=== PATIENT | female | born 1940 | race Caucasian/White ===

== ENCOUNTER 2018-09-30 16:28 | Observation (INO) ==
--- NOTE | 2018-09-30 17:14 | Emergency Department Note ---
Disposition Clinical Impression: Neck pain, COPD exacerbation, MARCELA (acute kidney injury) Dyspnea Qualifiers: Dyspnea type: unspecified Qualified Code(s): R06.00 - Dyspnea, unspecified Disposition: Admitted As Inpatient Condition: Undetermined Time of Disposition: 07:27 General Adult HPI - General Chief complaint: ED Shortness of Breath/Dyspnea Stated complaint: ANABEL, Heart cath 07/30 Time Seen by Provider: 09/30/18 17:01 Source: patient Limitations: no limitations - History of Present Illness Pain Scale: 5 - Related Data Home Medications Medication Instructions Recorded Confirmed Albuterol Sulfate [Proventil 1 puff IH PRN PRN 07/30/18 09/30/18 Inhaler] Aspirin [Lo-Dose Aspirin EC] 81 mg PO DAILY 07/30/18 09/30/18 Glimepiride [Amaryl] 8 mg PO BID 07/30/18 09/30/18 HYDROcodone/Acet 5/325 mg [[place] 1 tab PO Q6H PRN 07/30/18 09/30/18 5-325 mg] Latanoprost/Pf [Latanoprost 0.005% 7.5 ml OP HS 07/30/18 09/30/18 Eye Drop] Losartan Potassium [Cozaar] 100 mg PO DAILY 07/30/18 09/30/18 Metoprolol [Lopressor] 100 mg PO BID 07/30/18 09/30/18 Multivit-Min/Iron Fum/Folic AC 1 each PO DAILY 07/30/18 09/30/18 [Hjqcl-[id number]-Gwpfcgtq Tablet] Nitroglycerin [Nitrostat] 0.4 mg SL PRN PRN 07/30/18 09/30/18 Omeprazole [PriLOSEC] 40 mg PO DAILY 07/30/18 09/30/18 Tiotropium [Spiriva] 18 mcg IH PRN PRN 07/30/18 09/30/18 amLODIPine [Norvasc] 5 mg PO DAILY 07/30/18 09/30/18 clonazePAM [Clonazepam] 1 mg PO HS 07/30/18 09/30/18 hydroCHLOROthiazide 25 mg PO DAILY 07/30/18 09/30/18 [Hydrochlorothiazide] metFORMIN [Glucophage] 500 mg PO HS 07/30/18 09/30/18 metFORMIN [Glucophage] 1,000 mg PO 0800 09/30/18 09/30/18 Previous Rx's Medication Instructions Recorded Atorvastatin [Lipitor] 40 mg PO HS #30 tablet 07/30/18 Clopidogrel Bisulfate [Plavix] 75 mg PO DAILY #30 tablet 07/30/18 Allergies Allergy/AdvReac Type Severity Reaction Status Date / Time No Known Allergies Allergy Verified 09/05/17 13:16 Past Medical History - Past Medical History Medical history: Reports: COPD, diabetes, hyperlipidemia, hypertension, myocardial infarction Surgical history: Reports: angioplasty/stent Psychiatric history: Reports: no psych history - Social History Smoking Status: Former smoker Smokeless Tobacco Status: No Alcohol use: Reports: none Drug use: Reports: none Physical Exam - General Limitations: no limitations General appearance: alert, in no apparent distress Course Vital Signs Temperature 98.6 F 09/30/18 16:31 Pulse Rate 75 09/30/18 16:31 Respiratory Rate 18 09/30/18 16:31 Blood Pressure 153/92 09/30/18 16:31 O2 Sat by Pulse Oximetry 97 09/30/18 16:31 Temperature 98.2 F 10/01/18 04:43 Pulse Rate 86 10/01/18 04:43 Respiratory Rate 18 10/01/18 04:43 Blood Pressure 103/61 10/01/18 04:43 O2 Sat by Pulse Oximetry 94 10/01/18 04:43 Oxygen Delivery Oxygen Delivery Room Air Medical Decision Making - Lab Data Result diagrams: 10/01/18 05:25 09/30/18 17:11 Lab Results 09/30/18 09/30/18 09/30/18 Range/Units 17:04 17:11 17:11 WBC 14.2 H (4.3-11.1) K/mcL RBC 4.87 (3.82-4.97) M/mcL Hgb 12.6 (11.5-15.4) g/dL Hct 39.2 (35.3-44.9) % MCV 80.5 L (83.0-100.0) fL MCH 25.9 L (28.0-33.3) pg MCHC 32.1 (31.6-35.5) g/dL RDW 14.2 (11.5-14.5) % Plt Count 345 (140-400) K/mcL MPV 10.4 (9.4-12.4) fL Immature Gran % 0.6 (0-4) % Seg Neutrophils % 63.2 % Lymphocytes % 24.7 % Monocytes % 9.7 % Eosinophils % 1.3 % Basophils % 0.5 % Neutrophils # 9.0 H (1.6-8.9) K/mcL Lymphocytes # 3.5 (0.6-4.6) K/mcL Monocytes # 1.4 H (0.0-1.3) K/mcL Eosinophils # 0.2 (0.0-0.6) K/mcL Basophils # 0.1 (0.0-0.2) K/mcL Sodium 132 L (136-145) mEq/L Potassium 4.5 (3.5-5.1) mEq/L Chloride 94 L (98-107) mEq/L Carbon Dioxide 25 (23-29) mEq/L BUN 41 H (8-23) mg/dL Creatinine 1.31 H (0.60-1.20) mg/dL Est GFR ( Amer) 47 L (> 60) Est GFR (Non-Af Amer) 39 L (> 60) BUN/Creatinine Ratio 31 H (6-26) Glucose 147 H (70-105) mg/dL Calculated Osmolality 287 (280-300) Calcium 9.2 (8.6-10.3) mg/dL Troponin I < 0.03 (< 0.04) ng/mL B-Natriuretic Peptide 58 (Less than 100) pg/mL Attestation Statement - Attestation Attestation: I reviewed the residents documentation and agree with the residents assessment and plan of care. I have personally had face to face time with the patient. (Brief History, Brief Exam, and MDM) I personally supervised and was present for the dhaliwal/critical portions of the following procedures completed by the resident: (add procedures performed here). [id number] time provided I attest to supervising the resident physician's interpretation of ECG. Patient presents with dyspnea and pain between her shoulder blades. She states she had similar symptoms prior to cardiac catheterization with angioplasty. No stents were deployed. This intervention was performed 2 months ago. Patient appears mildly anxious on exam but otherwise no acute distress
--- NOTE | 2018-09-30 17:39 | Emergency Department Note ---
Disposition Clinical Impression: Neck pain, COPD exacerbation, MARCELA (acute kidney injury) Dyspnea Qualifiers: Dyspnea type: unspecified Qualified Code(s): R06.00 - Dyspnea, unspecified Disposition: Admitted As Inpatient Condition: Undetermined Referrals: Agustina Lai MD [Primary Care Provider] - Forms: ED Satisfaction Letter Time of Disposition: 19:52 General Adult HPI - General Chief complaint: ED Shortness of Breath/Dyspnea Stated complaint: ANABEL, Heart cath 07/30 Time Seen by Provider: 09/30/18 17:01 Source: patient Mode of arrival: private vehicle Limitations: no limitations Nursing Notes Reviewed: Yes Vital Signs Reviewed: Yes - History of Present Illness HPI Narrative: Patient is an 78-year-old female with a past medical history including hypertension, hyperlipidemia, COPD, coronary artery disease status post NM with multiple stent placements, presenting with chief complaint of shortness of breath. The patient was recently admitted and had a coronary catheterization with balloon angioplasty in July. During that time, she had shortness of breath and neck pain and back pain in between her shoulder blades. Patient states for the past 2-3 days, she complains of worsening shortness of breath. She complains of a new cough today. She has been increasing the use of her inhalers and nebulizer treatments without much improvement. She states today, she developed the neck pain and pain in her shoulder blades. She denies any actual chest pain. She states when this occurred, she became concerned this was her heart again. She denies any nausea or vomiting, diaphoresis, lightheadedness, abdominal pain, fevers or chills. Pain Scale: 5 - Related Data Home Medications Medication Instructions Recorded Confirmed Albuterol Sulfate [Proventil 1 puff IH PRN PRN 07/30/18 07/30/18 Inhaler] Aspirin [Lo-Dose Aspirin EC] 81 mg PO DAILY 07/30/18 07/30/18 Glimepiride [Amaryl] 8 mg PO BID 07/30/18 07/30/18 HYDROcodone/Acet 5/325 mg [[place] 1 tab PO Q6H PRN 07/30/18 07/30/18 5-325 mg] Latanoprost/Pf [Latanoprost 0.005% 7.5 ml OP HS 07/30/18 07/30/18 Eye Drop] Losartan Potassium [Cozaar] 100 mg PO DAILY 07/30/18 07/30/18 Metoprolol [Lopressor] 100 mg PO BID 07/30/18 07/30/18 Multivit-Min/Iron Fum/Folic AC 1 each PO DAILY 07/30/18 07/30/18 [Pbszt-Qlmcozp-Qpxtwkss Tablet] Nitroglycerin [Nitrostat] 0.4 mg SL PRN PRN 07/30/18 07/30/18 Omeprazole [PriLOSEC] 40 mg PO DAILY 07/30/18 07/30/18 Tiotropium [Spiriva] 18 mcg IH PRN PRN 07/30/18 07/30/18 amLODIPine [Norvasc] 5 mg PO DAILY 07/30/18 07/30/18 clonazePAM [Clonazepam] 1 mg PO HS 07/30/18 07/30/18 hydroCHLOROthiazide 25 mg PO DAILY 07/30/18 07/30/18 [Hydrochlorothiazide] metFORMIN [Glucophage] 500 mg PO HS 07/30/18 07/30/18 Previous Rx's Medication Instructions Recorded Atorvastatin [Lipitor] 40 mg PO HS #30 tablet 07/30/18 Clopidogrel Bisulfate [Plavix] 75 mg PO DAILY #30 tablet 07/30/18 Allergies Allergy/AdvReac Type Severity Reaction Status Date / Time No Known Allergies Allergy Verified 09/05/17 13:16 All systems ED: reviewed and negative except as stated. Review of Systems: As Per HPI Constitutional: Denies: fever, chills Past Medical History - Past Medical History Attestation: Yes The following information was validated with the patient. Source: patient Medical history: Reports: COPD, diabetes, hyperlipidemia, hypertension, myocardial infarction Surgical history: Reports: angioplasty/stent Psychiatric history: Reports: no psych history - Social History Smoking Status: Former smoker Smokeless Tobacco Status: No Alcohol use: Reports: none Drug use: Reports: none Physical Exam - General Limitations: no limitations General appearance: alert, in no apparent distress - Head Head exam: atraumatic, normocephalic - Eye Eye exam: Present: normal appearance, EOMI - ENT ENT exam: normal exam, mucous membranes moist - Neck Neck exam: Present: normal inspection, trachea midline - Chest Chest inspection: Present: normal inspection, symmetric chest wall rise - Respiratory Respiratory exam: Present: other (Diminished breath sounds bilaterally with scant expiratory wheezing, no rales or rhonchi, no accessory muscle use) - Cardiovascular Cardiovascular exam: Present: regular rate, normal rhythm - Abdominal Exam Abdominal exam: Present: soft, Non-Tender. Absent: distention - Extremities Exam Extremities exam: Present: normal capillary refill. Absent: pedal edema, calf tenderness - Neurological Exam Neurological exam: Present: alert, oriented X3 - Psychiatric Psychiatric exam: Present: normal affect, normal mood - Skin Skin exam: Present: warm, dry. Absent: diaphoresis, pallor Course Vital Signs Temperature 98.6 F 09/30/18 16:31 Pulse Rate 75 09/30/18 16:31 Respiratory Rate 18 09/30/18 16:31 Blood Pressure 153/92 09/30/18 16:31 O2 Sat by Pulse Oximetry 97 09/30/18 16:31 Temperature 98.6 F 09/30/18 16:31 Pulse Rate 80 09/30/18 19:46 Respiratory Rate 19 09/30/18 19:46 Blood Pressure 165/72 09/30/18 19:46 O2 Sat by Pulse Oximetry 96 09/30/18 19:46 Oxygen Delivery Oxygen Delivery Room Air Medical Decision Making - [facility] Narrative Medical decision making narrative: EKG was obtained that was unchanged from prior. We will obtain cardiac workup as these are similar symptoms that she presented with in July. She also has significantly decreased breath sounds bilaterally with scant expiratory wheezing. We will give her triple DuoNeb treatment and Solu-Medrol, azithromycin, for COPD exacerbation as well. 19:20 Patient was reevaluated. Lungs sound improved however the patient does not feel improved. She states she still has the pain in her neck and back as well as feeling short of breath. Chest x-ray shows no acute cardiopulmonary abnormality troponin less than 0.03. When the patient for cardiac workup as these are similar symptoms. Hospitalist has been paged. 19:[address] Pedraza, hospitalist, who accepts admission. Recommends trying nitroglycerin for her symptoms. Also aspirin given. - Medical Records Medical records reviewed: Yes I reviewed the patient's medical records. - Lab Data Lab results reviewed: Yes I reviewed the patient's lab results. Result diagrams: 09/30/18 17:11 09/30/18 17:11 Lab Results 09/30/18 09/30/18 09/30/18 Range/Units 17:04 17:11 17:11 WBC 14.2 H (4.3-11.1) K/mcL RBC 4.87 (3.82-4.97) M/mcL Hgb 12.6 (11.5-15.4) g/dL Hct 39.2 (35.3-44.9) % MCV 80.5 L (83.0-100.0) fL MCH 25.9 L (28.0-33.3) pg MCHC 32.1 (31.6-35.5) g/dL RDW 14.2 (11.5-14.5) % Plt Count 345 (140-400) K/mcL MPV 10.4 (9.4-12.4) fL Immature Gran % 0.6 (0-4) % Seg Neutrophils % 63.2 % Lymphocytes % 24.7 % Monocytes % 9.7 % Eosinophils % 1.3 % Basophils % 0.5 % Neutrophils # 9.0 H (1.6-8.9) K/mcL Lymphocytes # 3.5 (0.6-4.6) K/mcL Monocytes # 1.4 H (0.0-1.3) K/mcL Eosinophils # 0.2 (0.0-0.6) K/mcL Basophils # 0.1 (0.0-0.2) K/mcL Sodium 132 L (136-145) mEq/L Potassium 4.5 (3.5-5.1) mEq/L Chloride 94 L (98-107) mEq/L Carbon Dioxide 25 (23-29) mEq/L BUN 41 H (8-23) mg/dL Creatinine 1.31 H (0.60-1.20) mg/dL Est GFR ( Amer) 47 L (> 60) Est GFR (Non-Af Amer) 39 L (> 60) BUN/Creatinine Ratio 31 H (6-26) Glucose 147 H (70-105) mg/dL Calculated Osmolality 287 (280-300) Calcium 9.2 (8.6-10.3) mg/dL Troponin I < 0.03 (< 0.04) ng/mL B-Natriuretic Peptide 58 (Less than 100) pg/mL - Radiology Data Radiology results reviewed: Yes I reviewed the patient's radiology results. Chest X-Ray 09/30/18 17:04 IMPRESSION: 1. No radiographic finding to account for patient's shortness of breath. D/ / Mark Redman MD / Mark Redman MD Interpreting Provider: Mark Redman MD - EKG Data EKG #1 EKG attestation: Yes I reviewed and interpreted this EKG. EKG results narrative: EKG obtained at 1707 shows sinus rhythm with heart rate 72, ME interval 181, QRS duration 98, QTC 4:15, no ST elevation, no ST depression, T wave inversion in lead 3, compared to old EKG on 07/30/2018 which shows no new changes.
[2018-09-30 17:42] LABS: Basophils # 0.1 K/mcL (0.0-0.2); Basophils % 0.5 %; Eosinophils # 0.2 K/mcL (0.0-0.6); Eosinophils % 1.3 %; Hematocrit 39.2 % (35.3-44.9); Hemoglobin 12.6 g/dL (11.5-15.4); Immature Granulocytes % 0.6 % (0-4); Lymphocytes # 3.5 K/mcL (0.6-4.6); Lymphocytes % 24.7 %; Mean Corpuscular HGB Conc 32.1 g/dL (31.6-35.5); Mean Corpuscular Hemoglobin 25.9 pg (28.0-33.3); Mean Corpuscular Volume 80.5 fL (83.0-100.0); Mean Platelet Volume 10.4 fL (9.4-12.4); Monocytes # 1.4 K/mcL (0.0-1.3); Monocytes % 9.7 %; Platelet Count 345 K/mcL (140-400); Red Blood Count 4.87 M/mcL (3.82-4.97); Red Cell Distribution Width 14.2 % (11.5-14.5); Segmented Neutrophils % 63.2 %; White Blood Count 14.2 K/mcL (4.3-11.1)
[2018-09-30] MEDS ORDERED: Ipratropium/Albuterol Neb 3 ML IH ONE (18:00)
[2018-09-30] MEDS ORDERED: methylPREDNISolone 125 MG/2 ML VIAL IVP ONE (18:00)
[2018-09-30 18:01] LABS: BUN/Creatinine Ratio 31 (6-26); Blood Urea Nitrogen 41 mg/dL (8-23); Calcium 9.2 mg/dL (8.6-10.3); Carbon Dioxide 25 mEq/L (23-29); Chloride 94 mEq/L (98-107); Glucose 147 mg/dL (70-105); Osmolality,Calculated 287 (280-300); Potassium 4.5 mEq/L (3.5-5.1); Sodium 132 mEq/L (136-145); Troponin I < 0.03 ng/mL (< 0.04); eGFR For African Americans 47 (> 60); eGFR For Non-African Americans 39 (> 60)
[2018-09-30] MEDS ORDERED: Azithromycin 250 MG TABLET PO ONE (19:32)
[2018-09-30] MEDS ORDERED: Aspirin 81 MG TAB.CHEW PO STA (19:51)
[2018-09-30] MEDS ORDERED: Naloxone 0.4 MG/ML INJ IVP PRN (20:44)
[2018-09-30] MEDS ORDERED: Albuterol 2.5 MG/3 ML NEBULIZER IH PRN (20:48)
[2018-09-30] MEDS ORDERED: Dextrose Gel 15 GM/37.5 ML TUBE PO PRN ×2 (20:49)
[2018-09-30] MEDS ORDERED: *HR* Dextrose 50 % in Water (Syg) 50 ML SYRINGE IVP PRN (20:49)
[2018-09-30] MEDS ORDERED: D5% in Water 1,000 ML IVC PRN (20:49)
[2018-09-30] MEDS ORDERED: Nitroglycerin 0.4 MG TAB.SUBL SL PRN (20:50)
--- NOTE | 2018-09-30 21:03 | Internal Med History&Physical ---
Date of Encounter: 09/30/18 Time of Encounter: 20:02 Internal Medicine - H&P: HPI Chief complaint: Shortness of breath Admitted From: Emergency Dept Plans for Post Hospital Care: Home History of present illness: Ms. Campbell is a 78 year old female Patient presented to the emergency department with shortness of breath as well as interscapular back pain. Her symptoms are worse with exertion particularly when she is doing chores such as vacuuming at home. Her symptoms improve with rest. Her shortness of breath has been worse over the last few days, but the interscapular shoulder pain has been worsening as of today. She occasionally gets central chest pain as well with these episodes. She has had similar prese ntation like this 2 months ago. At that time she underwent a coronary catheterization which showed severe one-vessel coronary artery disease. A transradial PTCA was performed in the 1st obtuse marginal branch. She has since then continued to follow with cardiology and has also met with vascular surgery regarding carotid artery stenosis. She he smokes only a few cigarettes a day but has smoked for many years. She has a history of diabetes as well. Emergency department patient's initial vital signs within normal limits CBC notable for white count of 14.2. BMP notable for a sodium of 132, creatinine of 1.31 and a glucose of 147. Initial troponin undetectable BNP 58 Chest x-ray showed no radiographic findings to account for patient's shortness of breath. EKG: Heart rate 72, normal sinus rhythm, QTC 4:15. No ischemic changes, similar to previous. She does have an electronic atrial pacemaker. In the emergency department patient received breathing treatments, IV steroids and azithromycin. She is also given a dose of aspirin. Her chest pain had resolved and her shortness of breath is also improved. She initially declined admission, but eventually felt that it would be best for her to be admitted to the hospital. Upon my evaluation, patient is resting comfortably in the ER bed in no acute distress. She denies chest pain, abdominal pain, nausea, vomiting, diarrhea and constipation. Her shortness of breath is also resolved. She has significant family medical history of heart disease in her father, mother as well as her brother. She is a full code. Past Med Surg Social Fam HX - Past Medical History Medical history: COPD, diabetes, hyperlipidemia, hypertension, myocardial infarction Additional medical history: diverticulois, Psychiatric history: no psych history - Past Surgical History Surgical History: angioplasty/stent Additional surgical history: 6 cardiac stents. - Social History Smoking Status: Former smoker Smokeless Tobacco Status: No Alcohol use: none Drug use: none - Family History Mother Hx Family Cardiac Disorders: Yes (Heart disease) Father Hx Family Cardiac Disorders: Yes (Heart disease) Brother Hx Family Cardiac Disorders: Yes (Has pacemaker) Internal Medicine - H&P: Meds Albuterol Sulfate [Proventil Inhaler] 1 puff IH PRN PRN 07/30/18 [History] Aspirin [Lo-Dose Aspirin EC] 81 mg PO DAILY 07/30/18 [History] Atorvastatin [Lipitor] 40 mg PO HS #30 tablet 07/30/18 [Rx] Clopidogrel Bisulfate [Plavix] 75 mg PO DAILY #30 tablet 07/30/18 [Rx] Glimepiride [Amaryl] 8 mg PO BID 07/30/18 [History] HYDROcodone/Acet 5/325 mg [[place] 5-325 mg] 1 tab PO Q6H PRN 07/30/18 [History] Latanoprost/Pf [Latanoprost 0.005% Eye Drop] 7.5 ml OP HS 07/30/18 [History] Losartan Potassium [Cozaar] 100 mg PO DAILY 07/30/18 [History] Metoprolol [Lopressor] 100 mg PO BID 07/30/18 [History] Multivit-Min/Iron Fum/Folic AC [Hotqe-Rvbmwit-Bacesajo Tablet] 1 each PO DAILY 07/30/18 [History] Nitroglycerin [Nitrostat] 0.4 mg SL PRN PRN 07/30/18 [History] Omeprazole [PriLOSEC] 40 mg PO DAILY 07/30/18 [History] Tiotropium [Spiriva] 18 mcg IH PRN PRN 07/30/18 [History] amLODIPine [Norvasc] 5 mg PO DAILY 07/30/18 [History] clonazePAM [Clonazepam] 1 mg PO HS 07/30/18 [History] hydroCHLOROthiazide [Hydrochlorothiazide] 25 mg PO DAILY 07/30/18 [History] metFORMIN [Glucophage] 500 mg PO HS 07/30/18 [History] metFORMIN [Glucophage] 1,000 mg PO 0800 09/30/18 [History] Allergy/AdvReac Type Severity Reaction Status Date / Time No Known Allergies Allergy Verified 09/05/17 13:16 All Systems PM: A 10-system review of systems was performed and is negative for pertinent findings except as documented above in the HPI. - Constitutional Vitals: Temp Pulse Resp BP Pulse Ox 98.6 F 77 17 171/71 98 09/30/18 16:31 09/30/18 20:24 09/30/18 20:24 09/30/18 20:24 09/30/18 20:24 General appearance: Present: cooperative, A&O X 3, pleasant, no acute distress, answers questions appropriately Exam: - - Head Head exam: Present: normal inspection - Eye Eye exam: Present: EOMI, normal appearance - Neck Neck exam general surgery: Present: full ROM, supple. Absent: tenderness - Respiratory Respiratory exam: Present: CTAB. Absent: chest wall tenderness, decreased breath sounds, rales, respiratory distress, rhonchi, wheezes - Cardiovascular Cardiovascular exam: Present: RRR. Absent: diastolic murmur, systolic murmur - GI/Abdominal GI/Abdominal exam: Present: normal bowel sounds, soft. Absent: tenderness - Extremities Exam Extremities exam: Present: warm, radial pulses palpable and symmetrical. Absent: calf tenderness, pedal edema, tenderness - Back Exam Back exam: Absent: CVA tenderness (L), CVA tenderness (R), tenderness, vertebral tenderness - Neurological Exam Neurological exam: Present: no focal deficits, strengths equal and symetr throughout. Absent: motor sensory deficit, facial droop, speech deficit - Skin Skin exam: Present: dry, normal color, warm Internal Med - H&P Results - Labs CBC & Chem 7: 09/30/18 17:11 09/30/18 17:11 Labs: Short CBC 09/30/18 Range/Units 17:11 WBC 14.2 H (4.3-11.1) K/mcL Hgb 12.6 (11.5-15.4) g/dL Hct 39.2 (35.3-44.9) % Plt Count 345 (140-400) K/mcL Neutrophils # 9.0 H (1.6-8.9) K/mcL BMP 09/30/18 17:11 Sodium 132 L Potassium 4.5 Chloride 94 L Carbon Dioxide 25 BUN 41 H Creatinine 1.31 H Glucose 147 H Calcium 9.2 Cardiac Enzymes 09/30/18 Range/Units 17:11 Troponin I < 0.03 (< 0.04) ng/mL - Impressions ITS Impressions Chest X-Ray 09/30/18 17:04 IMPRESSION: 1. No radiographic finding to account for patient's shortness of breath. D/ / Mark Redman MD / Mark Redman MD Interpreting Provider: Mark Redman MD - Assessment and Plan (1) Shortness of breath Current Visit: Yes Status: Acute Assessment and plan: Secondary to possible COPD exacerbation. She has a history of smoking. Symptoms improved after breathing treatments and IV steroids. Continue oxygen supplementation as needed Continue DuoNeb nebs and albuterol Prednisone 40 mg daily Azithromycin 500 mg IV daily Continuous pulse oximeter (2) COPD exacerbation Current Visit: Yes Status: Acute Assessment and plan: As above, patient has history of COPD and nicotine use. Continue oxygen supplementation Continue DuoNeb nebs and albuterol Prednisone 40 mg daily Azithromycin 500 mg IV daily (3) Chest pain Current Visit: Yes Status: Acute Assessment and plan: Patient did have recent cardiac catheterization 2 months ago. Has chest pain with exertion, relieved at rest. Currently chest pain resolved. Aspirin given in the emergency department. EKG negative for ischemic changes, initial troponin undetectable. Cardiac telemetry Continue to trend troponin Sublingual nitroglycerin as needed Cardiology consult in the morning Qualifiers: Chest pain type: unspecified Qualified Code(s): R07.9 - Chest pain, unspecified (4) MARCELA (acute kidney injury) Current Visit: Yes Status: Acute Assessment and plan: Patient has baseline chronic kidney disease stage III. Elevated creatinine from baseline. Give IV fluids 1 L bolus now Repeat labs in the morning (5) Diabetes Current Visit: Yes Status: Acute Assessment and plan: Patient is not an insulin dependent diabetic Monitor sugars every 6 hours Diabetic diet, nothing by mouth after midnight Low dose insulin sliding scale as needed Hold home meds. Qualifiers: Diabetes mellitus type: type 2 Diabetes mellitus mcc insulin use: without termination clerk use Diabetes mellitus complication status: with hyperglycemia Qualified Code(s): E11.65 - Type 2 diabetes mellitus with hyperglycemia (6) DVT prophylaxis Current Visit: Yes Status: Acute Assessment and plan: Subcutaneous heparin - Time Spent With Patient Total time spent is greater than 50% in coordination of care (as documented) at patient's floor/unit and/or counseling patient: Greater than 35 minutes
[2018-09-30] MEDS ORDERED: 0.9 % Sodium Chloride 1,000 ML IVC ONE (21:11)
[2018-09-30] MEDS: Ipratropium/Albuterol Neb 3 ML IH SCH (21:50)
[2018-09-30] MEDS: Nitroglycerin 0.4 MG TAB.SUBL SL SCH (23:42)
[2018-10-01] MEDS: clonazePAM 1 MG TABLET PO SCH ×2 (02:42→21:26)
[2018-10-01] MEDS: Insulin LISPRO 300 UNITS/3 ML VIAL SQ SCH ×4 (02:48→18:52)
[2018-10-01] MEDS: Ipratropium/Albuterol Neb 3 ML IH SCH ×5 (04:19→22:31)
[2018-10-01] MEDS: *HR* Heparin 5,000 UNIT/ML VIAL SQ SCH ×2 (05:37→18:52)
[2018-10-01 06:27] LABS: Hematocrit 36.1 % (35.3-44.9); Hemoglobin 12.1 g/dL (11.5-15.4); Mean Corpuscular HGB Conc 33.5 g/dL (31.6-35.5); Mean Corpuscular Hemoglobin 26.9 pg (28.0-33.3); Mean Corpuscular Volume 80.4 fL (83.0-100.0); Mean Platelet Volume 10.6 fL (9.4-12.4); Platelet Count 284 K/mcL (140-400); Red Blood Count 4.49 M/mcL (3.82-4.97); Red Cell Distribution Width 14.1 % (11.5-14.5); White Blood Count 9.7 K/mcL (4.3-11.1)
[2018-10-01] MEDS: Nitroglycerin 0.4 MG TAB.SUBL SL SCH (06:43)
[2018-10-01 07:07] LABS: Troponin I < 0.03 ng/mL (< 0.04)
[2018-10-01 07:32] LABS: BUN/Creatinine Ratio 33 (6-26); Blood Urea Nitrogen 38 mg/dL (8-23); Calcium 8.8 mg/dL (8.6-10.3); Carbon Dioxide 23 mEq/L (23-29); Chloride 98 mEq/L (98-107); Glucose 333 mg/dL (70-105); Osmolality,Calculated 290 (280-300); Potassium 4.2 mEq/L (3.5-5.1); Sodium 129 mEq/L (136-145); eGFR For African Americans 56 (> 60); eGFR For Non-African Americans 46 (> 60)
[2018-10-01] MEDS: predniSONE 20 MG TABLET PO SCH (10:14)
[2018-10-01] MEDS: Metoprolol 100 MG TABLET PO SCH ×2 (10:14→21:26)
[2018-10-01] MEDS: Aspirin Enteric Coated 81 MG Tablet PO SCH (10:14)
[2018-10-01] MEDS: Azithromycin 500 MG in D5% in Water 250 ML IVPB SCH (10:15)
--- NOTE | 2018-10-01 11:33 | Cardiology Consult Note ---
<Wolfgang Sifuentes R - Last Filed: 10/01/18 11:29> Date of Encounter: 10/01/18 Time of Encounter: 11:29 Assessment and Plan (1) Anginal equivalent Current Visit: Yes Status: Acute Presented to the ED with shortness of breath as well as interscapular back pain radiating to her neck, similar to prior anginal equivalent. Recent PTCA to 1st OM on 07/30/18. Per pt, symptoms never resolved s/p PTCA. Her symptoms are worse with exertion particularly when she is doing chores such as vacuuming at home. Symptoms improve with rest and nitro. Troponin negative x 3. C 07/30/18: Severe one vessel CAD. EF 65%. Patient had successful PTCA placement in the 1st OM. 30% stenosis in the Mid LAD. 65% stenosis in the Mid Circumflex. 60% stenosis in the Mid RCA. TTE 06/12/18: LVEF 65%. Mild to moderate LV hypertrophy most prominently focused in the LV apex. Mild LVDD. Normal RV structure and function. Mild-moderate MR. Mild TR. No phtn. Continue ASA, Statin, Plavix, BB. Will increase Imdur to 60mg daily. Recommend medical management. Will re-evaluate on increased Imdur dose. (2) CAD (coronary artery disease) Current Visit: Yes Status: Acute As above. ASA, Statin, Plavix, BB, nitrates. Qualifiers: Coronary Disease-Associated Artery/Lesion type: [place] artery [place] vs. transplanted heart: [place] heart Associated angina: angina presence unspecified Qualified Code(s): I25.10 - Atherosclerotic heart disease of [place] coronary artery without angina pectoris Discussion w patient/family: The assessment and plan as outlined above was discussed with the patient and/or family members who expressed understanding and agreement. All questions were answered. Thank you for involving us in the care of your patient. Please call with any questions. I will discuss all the above with Dr. Johnson and make changes as necessary. History of Present Illness Consult date: 10/01/18 Consult reason: chest pain History of present illness: Ms. Campbell is a 78 year old female with PMH DM, tobacco abuse, CAD s/p PCI and recent PTCA to 1st OM on 07/30/18 that presented to the ED with shortness of breath as well as interscapular back pain radiating to her neck, similar to prior anginal equivalent. Per pt, symptoms never resolved s/p PTCA. Her symptoms are worse with exertion particularly when she is doing chores such as vacuuming at home. Symptoms improve with rest and nitro. Prior CV testing: [facility] 07/30/18: There is severe one vessel coronary artery disease. The left ventricle is normal and has normal contractility EF 65%. Patient had successful PTCA placement in the 1st OM. Right Radial spasm during catheter removal. 30% stenosis in the Mid LAD. 65% stenosis in the Mid Circumflex. 60% stenosis in the Mid RCA. TTE 06/12/18: LVEF 65%. Mild to moderate LV hypertrophy most prominently focused in the LV apex. Mild left ventricular diastolic dysfunction. Normal right ventricular structure and function. Mild-moderate mitral regurgitation. Mild tricuspid regurgitation. No pulmonary hypertension. A device lead was visualized in the right atrium and right ventricle. No evidence of PFO with agitated saline contrast. No prior echo for comparison. Past Med Surg Social Fam HX - Past Medical History Medical history: COPD, coronary artery disease, diabetes, hyperlipidemia, hypertension, myocardial infarction Additional medical history: diverticulois, Psychiatric history: no psych history - Past Surgical History Surgical History: angioplasty/stent Additional surgical history: 6 cardiac stents. - Social History Smoking Status: Former smoker Smokeless Tobacco Status: No Alcohol use: none Drug use: none - Family History Mother Hx Family Cardiac Disorders: Yes (Heart disease) Father Hx Family Cardiac Disorders: Yes (Heart disease) Brother Hx Family Cardiac Disorders: Yes (Has pacemaker) Medications and Allergies Albuterol Sulfate [Proventil Inhaler] 1 puff IH PRN PRN 07/30/18 [History] Aspirin [Lo-Dose Aspirin EC] 81 mg PO DAILY 07/30/18 [History] Atorvastatin [Lipitor] 40 mg PO HS #30 tablet 07/30/18 [Rx] Clopidogrel Bisulfate [Plavix] 75 mg PO DAILY #30 tablet 07/30/18 [Rx] Glimepiride [Amaryl] 4 mg PO BID 07/30/18 [History] Latanoprost/Pf [Latanoprost 0.005% Eye Drop] 1 drop BOTH EYES HS 07/30/18 [History] Losartan Potassium [Cozaar] 100 mg PO DAILY 07/30/18 [History] Multivit-Min/Iron Fum/Folic AC [Ddugz-Aulhldr-Fhlgeurg Tablet] 1 each PO DAILY 07/30/18 [History] Nitroglycerin [Nitrostat] 0.4 mg SL PRN PRN 07/30/18 [History] Omeprazole [PriLOSEC] 40 mg PO DAILY 07/30/18 [History] Tiotropium [Spiriva] 18 mcg IH DAILY PRN 07/30/18 [History] amLODIPine [Norvasc] 5 mg PO DAILY 07/30/18 [History] hydroCHLOROthiazide [Hydrochlorothiazide] 25 mg PO DAILY 07/30/18 [History] metFORMIN [Glucophage] 500 mg PO HS 07/30/18 [History] metFORMIN [Glucophage] 1,000 mg PO 0800 09/30/18 [History] Isosorbide MONOnitrate [Isosorbide Mononitrate ER] 30 mg PO DAILY 10/01/18 [History] Metoprolol Tartrate 50 mg PO BID 10/01/18 [History] Nicotine Patch [Nicoderm] 7 mg TD DAILY PRN 10/01/18 [History] clonazePAM [Clonazepam] 0.5 mg PO HS 10/01/18 [History] Allergy/AdvReac Type Severity Reaction Status Date / Time No Known Allergies Allergy Verified 10/01/18 08:57 All Systems Review: The remainder of the systems were reviewed and are negative - Cardiovascular Cardiovascular: as per HPI, chest pain at rest, chest pain with exertion, dyspnea on exertion, radiating jaw, neck or arm pain Physical Examination Vital Signs, Last 4 Hours Temp Pulse Resp BP Pulse Ox 10/01/18 08:23 98.1 F 79 15 140/75 96 Vital Signs Temp Pulse Resp BP Pulse Ox 10/01/18 08:23 98.1 F 79 15 140/75 96 10/01/18 04:43 98.2 F 86 18 103/61 94 10/01/18 04:20 18 96 09/30/18 23:42 97.8 F 88 16 179/93 96 09/30/18 21:50 18 96 09/30/18 20:49 98.1 F 77 16 165/76 96 09/30/18 20:24 77 17 171/71 98 09/30/18 19:46 80 19 165/72 96 09/30/18 18:55 70 18 142/82 99 09/30/18 18:45 24 98 09/30/18 16:31 98.6 F 75 18 153/92 97 Intake and Output 09/30/18 10/01/18 10/01/18 23:59 07:59 15:59 Output Total 500 / 500 500 / 1100 600 / 1100 Balance -500 / -500 -500 / -1100 -600 / -1100 Output: Urine 500 / 500 500 / 1100 600 / 1100 Other: Weight 78.018 kg Blood Glucose* 194 291 General: Conversant, No Apparent Distress HEENT: Atraumatic, Normocephaly, Mucus Membranes Moist Neck: No JVD, Normal carotid pulses Cardiac: Reg Rate and Rhythm, Normal S1 and S2, No Murmur Lungs: Normal Breath Sounds, No Wheeze, Rales, Rhonchi Neuro: Alert and responsive, No focal deficits noted Abdomen: Soft, Non-Tender Skin: No rashes noted on visualized skin Musculoskeletal: No Chest Wall Tenderness Extremities: No Clubbing, No Cyanosis, No Edema, Normal Pulses Results 10/01/18 05:25 10/01/18 05:25 Lab Results 09/30/18 09/30/18 09/30/18 17:04 17:11 17:11 WBC 14.2 H Hgb 12.6 Hct 39.2 Plt Count 345 Sodium 132 L Potassium 4.5 Chloride 94 L Carbon Dioxide 25 BUN 41 H Creatinine 1.31 H Glucose 147 H Calcium 9.2 Troponin I < 0.03 B-Natriuretic Peptide 58 09/30/18 10/01/18 10/01/18 22:52 05:25 05:25 WBC 9.7 Hgb 12.1 Hct 36.1 Plt Count 284 Sodium 129 L Potassium 4.2 Chloride 98 Carbon Dioxide 23 BUN 38 H Creatinine 1.14 Glucose 333 H Calcium 8.8 Troponin I < 0.03 < 0.03 B-Natriuretic Peptide Short CBC 10/01/18 09/30/18 Range/Units 05:25 17:11 WBC 9.7 14.2 H (4.3-11.1) K/mcL Hgb 12.1 12.6 (11.5-15.4) g/dL Hct 36.1 39.2 (35.3-44.9) % Plt Count 284 345 (140-400) K/mcL Neutrophils # 9.0 H (1.6-8.9) K/mcL BMP 10/01/18 09/30/18 Range/Units 05:25 17:11 Sodium 129 L 132 L (136-145) mEq/L Potassium 4.2 4.5 (3.5-5.1) mEq/L Chloride 98 94 L (98-107) mEq/L Carbon Dioxide 23 25 (23-29) mEq/L BUN 38 H 41 H (8-23) mg/dL Creatinine 1.14 1.31 H (0.60-1.20) mg/dL Glucose 333 H 147 H (70-105) mg/dL Calcium 8.8 9.2 (8.6-10.3) mg/dL Cardiac Enzymes 10/01/18 09/30/18 09/30/18 Range/Units 05:25 22:52 17:11 Troponin I < 0.03 < 0.03 < 0.03 (< 0.04) ng/mL Impressions Chest X-Ray 09/30/18 17:04 IMPRESSION: 1. No radiographic finding to account for patient's shortness of breath. D/ / Mark Redman MD / Mark Redman MD Interpreting Provider: Mark Redman MD Active Medications Albuterol Sulfate (Proventil Neb) 2.5 mg IH Q2H PRN PRN Reason: Shortness Of Breath/Wheezing Stop: 04/01/19 20:49 Albuterol/Ipratropium (Duoneb) 3 ml IH QIDR [facility] Stop: 04/01/19 23:01 Last Admin: 10/01/18 09:29 Dose: Not Given Documented by: Aspirin (Aspirin Ec) 81 mg PO DAILY [facility] Stop: 04/02/19 09:01 Last Admin: 10/01/18 10:14 Dose: 81 mg Documented by: Atorvastatin Calcium (Lipitor) 40 mg PO [facility] Stop: 04/02/19 21:01 Clonazepam (Klonopin) 1 mg PO HS [facility] Stop: 04/02/19 00:31 Last Admin: 10/01/18 02:42 Dose: 1 mg Documented by: Clopidogrel Bisulfate (Plavix) 75 mg PO DAILY [facility] Stop: 04/02/19 09:01 Last Admin: 10/01/18 10:14 Dose: 75 mg Documented by: Dextrose/Water (Dextrose 50% (Syg)) 25 ml IVP AD PRN PRN Reason: Hypoglycemia Stop: 04/01/19 20:50 Glucagon (Glucagen) 1 mg IM ONCE PRN PRN Reason: Hypoglycemia Stop: 04/01/19 20:50 Glucose (Gluctose) 15 gm PO ONCE PRN PRN Reason: Hypoglycemia Stop: 04/01/19 20:50 Glucose (Gluctose) 30 gm PO ONCE PRN PRN Reason: Hypoglycemia Stop: 04/01/19 20:50 Heparin Sodium (Porcine) (Heparin) 5,000 unit SQ Q12HCO [facility]; Protocol Stop: 04/02/19 06:01 Last Admin: 10/01/18 05:37 Dose: 5,000 unit Documented by: Azithromycin 500 mg/ Dextrose 250 mls @ 252 mls/hr IVPB Q24H [facility] Stop: 04/02/19 09:01 Last Admin: 10/01/18 10:15 Dose: 252 mls/hr Documented by: Dextrose (Dextrose 5%) 1,000 mls @ 100 mls/hr IVC .Q10H PRN PRN Reason: HYPOGLYCEMIA Stop: 04/01/19 20:50 Insulin Human Lispro (Humalog) 0 units SQ Q6HR [facility]; Protocol Stop: 04/02/19 00:01 Last Admin: 10/01/18 05:37 Dose: 8 units Documented by: Isosorbide Mononitrate (Imdur) 60 mg PO DAILY [facility] Stop: 04/02/19 11:31 Latanoprost (Xalatan) 1 drop BOTH EYES HS [facility] Stop: 04/02/19 21:01 Metoprolol Tartrate (Lopressor) 100 mg PO BID [facility] Stop: 04/02/19 09:01 Last Admin: 10/01/18 10:14 Dose: 100 mg Documented by: Naloxone HCl (Narcan) 0.4 mg IVP Q2MPRN PRN PRN Reason: SEE COMMENTS Stop: 04/01/19 20:45 Nitroglycerin (Nitroglycerin) 0.4 mg SL Q5MPRN PRN PRN Reason: Chest Pain Stop: 04/01/19 20:51 Omeprazole (Prilosec) 40 mg PO DAILY [facility] Stop: 04/02/19 09:01 Last Admin: 10/01/18 10:14 Dose: 40 mg Documented by: Prednisone (Prednisone) 40 mg PO DAILY [facility] Stop: 04/02/19 09:01 Last Admin: 10/01/18 10:14 Dose: 40 mg Documented by: - Imaging and Cardiology Echo: report reviewed Cardiac cath: report reviewed - EKG Interpretation EKG results cardiology: personally reviewed (SR), other (12 hr tele AVG HR 79, SR) Consult Discharge Plan - Plan Referrals: Agustina Lai MD [Primary Care Provider] - <Nelson Johnson - Last Filed: 10/01/18 19:56> Date of Encounter: 10/01/18 - Attending Attestation Patient was seen and evaluated independently by me. Findings, assessment and plan were discussed at length with patient, questions answered. Agree with nurse practitioner's/resident's documentation. Addition as follows, 78yoCF ho CAD PCI and recent PTCA-OM 20180809 (mLAD 30%, mLCx 65%, mRCA 60%), EF 60%, HTN, HLD, DM, COPD. P/w milder back/neck pain similar to angina equivalent prior to recent PCI. ECG non-ischemic. Trop neg. [id number] SPECT no ischemia. A: Atypical angina, stable, class III, vasospasm component? CAD, ho PCIs, recent PTCA-OM, mild-moderate 3-V disease P: up imdur and BB may trial of cardizem or ranexa if no improvement, [facility] Nelson Johnson MD, PhD Assessment and Plan Discussion w patient/family: The assessment and plan as outlined above was discussed with the patient and/or family members who expressed understanding and agreement. All questions were answered. Thank you for involving us in the care of your patient. Please call with any questions. History of Present Illness History of present illness: Ms. Campbell is a 78 year old female All Systems Review: The remainder of the systems were reviewed and are negative Physical Examination Vital Signs, Last 4 Hours Temp Pulse Resp BP Pulse Ox 10/01/18 17:14 97.7 F 65 16 110/70 97 10/01/18 15:48 16 97 Results 10/01/18 05:25 10/01/18 05:25 Lab Results 09/30/18 10/01/18 10/01/18 22:52 05:25 05:25 WBC 9.7 Hgb 12.1 Hct 36.1 Plt Count 284 Sodium 129 L Potassium 4.2 Chloride 98 Carbon Dioxide 23 BUN 38 H Creatinine 1.14 Glucose 333 H Calcium 8.8 Troponin I < 0.03 < 0.03
[2018-10-01] MEDS: Isosorbide MONOnitrate (24 HR) 60 MG TAB.ER.24H PO SCH (14:22)
--- NOTE | 2018-10-01 14:44 | Internal Med Progress Note ---
Hospitalist Progress Note - Encounter Date of Encounter: 10/01/18 Time of Encounter: 14:39 - Subjective Interval History: Ms. Campbell is a 78 year old female with known past medical history of hypertension, COPD, DM2, HTN, HLD, and CAD with recent PCI to 1st OM on 07/30/18, now she presented to ER with progressively worsening shortness of breath and intermittent left chest wall pain, as well as interscapular back pain radiating to her neck, similar to prior anginal equivalent. 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 She was started on systemic steroids and prophylactic antibiotic for her COPD exacerbation. Her serial troponin came back as negative. She denied any more active chest pain now. Patient stated her breathing is little better today. - Exam Vitals: Temp Pulse Resp BP Pulse Ox 97.9 F 67 16 155/69 96 10/01/18 11:52 10/01/18 11:52 10/01/18 13:42 10/01/18 11:52 10/01/18 13:42 Exam: Gen: Alert, awake, Oriented to time,place and person Chest: Diminished breath sounds B/L, mild wheezing, No crackles, No rales Heart: S1S2+ RRR No murmurs Abd: Soft, NT, BS +, No organomegaly Ext: trace edema, pulses are palpable, No calf tenderness Neuro : No acute focal neuro deficits noticed Skin: No rash. - Assessment and Plan (1) Chest pain Current Visit: Yes Status: Acute Assessment and Plan: Serial troponin negative Cont ASA, Plavix, Statin and BB No acute ischemic changes on EKG Cardiology evaluated the pt and recommend to inc her Imdur to 60mg Ordered 2 D [employer] continue close monitoring (2) COPD exacerbation Current Visit: Yes Status: Acute Assessment and Plan: She does have mild COPD exacerbation improving Continue frequent DuoNeb continue systemic steroids Prednisone 40 mg daily continue prophylactic abx Azithromycin 250mg PO Daily (3) MARCELA (acute kidney injury) Current Visit: Yes Status: Acute Assessment and Plan: Patient has baseline chronic kidney disease stage III. Elevated creatinine from baseline. She does have mild MARCELA with CKD-3 Improved with gentle IV hydration (4) Shortness of breath Current Visit: Yes Status: Acute Assessment and Plan: Secondary to possible COPD exacerbation. She has a history of smoking improving (5) Diabetes Current Visit: Yes Status: Acute Assessment and Plan: On ADA diet insulin sliding scale (6) DVT prophylaxis Current Visit: Yes Status: Acute Assessment and Plan: Subcutaneous heparin - Time Spent with Patient Total time spent is greater than 50% in coordination of care (as documented) at patient's floor/unit and/or counseling patient: Internal Medicine: Result - Labs CBC & Chem 7: 10/01/18 05:25 10/01/18 05:25 Labs: Short CBC 09/30/18 10/01/18 Range/Units 17:11 05:25 WBC 14.2 H 9.7 (4.3-11.1) K/mcL Hgb 12.6 12.1 (11.5-15.4) g/dL Hct 39.2 36.1 (35.3-44.9) % Plt Count 345 284 (140-400) K/mcL Neutrophils # 9.0 H (1.6-8.9) K/mcL BMP 09/30/18 10/01/18 17:11 05:25 Sodium 132 L 129 L Potassium 4.5 4.2 Chloride 94 L 98 Carbon Dioxide 25 23 BUN 41 H 38 H Creatinine 1.31 H 1.14 Glucose 147 H 333 H Calcium 9.2 8.8 Cardiac Enzymes 09/30/18 09/30/18 10/01/18 Range/Units 17:11 22:52 05:25 Troponin I < 0.03 < 0.03 < 0.03 (< 0.04) ng/mL - Impressions Impressions Chest X-Ray 09/30/18 17:04 IMPRESSION: 1. No radiographic finding to account for patient's shortness of breath. D/ / Mark Redman MD / Mark Redman MD Interpreting Provider: Mark Redman MD Consult Discharge Plan - Plan Referrals: Agustina Lai MD [Primary Care Provider] - (1) Chest pain Qualifiers: Chest pain type: unspecified Qualified Code(s): R07.9 - Chest pain, unspecified (5) Diabetes Qualifiers: Diabetes mellitus type: type 2 Diabetes mellitus manager terminal insulin use: without manager terminal use Diabetes mellitus complication status: with hyperglycemia Qualified Code(s): E11.65 - Type 2 diabetes mellitus with hyperglycemia
--- NOTE | 2018-10-01 18:21 | Electrocardiograph Report ---
[facility] Test Date: 2018-09-30 Pat Name: Edna Campbell Department: EXAM23 Room: 65 Gender: F Epic Cadence Analyst: : 1940 Requested By: Marci Monreal Order Number: [id number] Reading MD: Dominic Miranda Measurements Intervals [place] Rate: 72 P: 27 [place]: 181 QRS: -11 QRSD: 98 T: 11 QT: 379 QTc: 415 Interpretive Statements Sinus rhythm Electronically Signed On 10-01-2018 18:19:59 EDT by Dominic Miranda
[2018-10-01] MEDS ORDERED: Latanoprost 2.5 ML BOTTLE BOTH EYES SCH (21:00)
[2018-10-02] MEDS: Ipratropium/Albuterol Neb 3 ML IH SCH ×2 (04:20→10:18)
[2018-10-02] MEDS: Insulin LISPRO 300 UNITS/3 ML VIAL SQ SCH ×3 (04:35→12:30)
[2018-10-02] MEDS: *HR* Heparin 5,000 UNIT/ML VIAL SQ SCH (05:17)
[2018-10-02] MEDS: Metoprolol 100 MG TABLET PO SCH (09:18)
[2018-10-02] MEDS: Azithromycin 500 MG in D5% in Water 250 ML IVPB SCH (09:18)
[2018-10-02] MEDS: Isosorbide MONOnitrate (24 HR) 60 MG TAB.ER.24H PO SCH (09:18)
[2018-10-02] MEDS: predniSONE 20 MG TABLET PO SCH (09:18)
[2018-10-02] MEDS: Aspirin Enteric Coated 81 MG Tablet PO SCH (09:18)
[2018-10-02 11:14] LABS: Calcium 8.8 mg/dL (8.6-10.3); Potassium 4.3 mEq/L (3.5-5.1)
[2018-10-02 12:28] VITALS: BP 141/72
--- NOTE | 2018-10-02 13:02 | Cardiology Progress Note ---
Date of Encounter: 10/02/18 Time of Encounter: 12:59 Assessment and Plan (1) Anginal equivalent Current Visit: Yes Status: Acute Presented to the ED with shortness of breath, interscapular back pain radiating to her neck, similar to prior anginal equivalent. Recent PTCA to 1st OM on 07/30/18. Per pt, symptoms never resolved s/p PTCA. Symptoms are worse with exertion, improve with rest and nitro. Troponin negative x 3. C 07/30/18 Severe 1V CAD. EF 65%. Successful PTCA placement in the 1st OM. 30% stenosis in mLAD. 65% stenosis in the mLCx. 60% stenosis in the mRCA. TTE 06/12/18: LVEF 65%. Mild to moderate LVH most prominently focused in the LV apex. Mild LVDD. Normal RV. Mild-moderate MR. Mild TR. No phtn. Repeat limited TTE EF remains preserved. Increased Imdur to 60mg daily and pt denies recurrent symptoms since increase. Recommend continued medical management. Continue ASA, Plavix, Statin, BB, nitrates. Cardiology signing off. Reconsult PRN. Will coordinate outpt follow-up. (2) CAD (coronary artery disease) Current Visit: Yes Status: Acute As above. ASA, Statin, Plavix, BB, nitrates. Qualifiers: Coronary Disease-Associated Artery/Lesion type: [place] artery [place] vs. transplanted heart: [place] heart Associated angina: angina presence unspecified Qualified Code(s): I25.10 - Atherosclerotic heart disease of [place] coronary artery without angina pectoris Discussion w patient/family: The assessment and plan as outlined above was discussed with the patient and/or family members who expressed understanding and agreement. All questions were answered. Thank you for involving us in the care of your patient. Please call with any questions. I will discuss all the above with Dr. Johnson and make changes as necessary. Subjective Principal diagnosis: angina Interval history: No recurrent neck, jaw or chest pain overnight. Objective Vital Signs, Last 4 Hours Temp Pulse Resp BP Pulse Ox 10/02/18 12:27 97.9 F 62 16 141/72 96 10/02/18 10:19 17 96 Vital Signs Temp Pulse Resp BP Pulse Ox 10/02/18 12:27 97.9 F 62 16 141/72 96 10/02/18 10:19 17 96 10/02/18 08:34 98.1 F 61 17 151/73 96 10/02/18 04:20 16 94 10/02/18 03:25 97.6 F 67 15 148/74 96 10/01/18 23:21 98.0 F 85 17 135/87 96 10/01/18 22:32 16 96 10/01/18 19:49 97.7 F 70 14 113/61 96 10/01/18 17:14 97.7 F 65 16 110/70 97 10/01/18 15:48 16 97 10/01/18 13:42 16 96 Intake and Output 10/01/18 10/02/18 10/02/18 23:59 07:59 15:59 Intake Total 240 / 610 240 / 240 Output Total 600 / 1700 1700 / 1700 Balance -360 / -1090 -1700 / -1460 240 / -1460 Intake: Oral 240 / 360 240 / 240 Output: Urine 600 / 1700 1700 / 1700 Other: Meal Dinner Breakfast Percent of Meal Consumed 100% 100% Weight 78.018 kg Blood Glucose* 168 142 Patient Weight 10/02/18 23:59 Weight 78.018 kg General: Conversant, No Apparent Distress HEENT: Atraumatic, Normocephaly, Mucus Membranes Moist Neck: No JVD, Normal carotid pulses Cardiac: Reg Rate and Rhythm, Normal S1 and S2, No Murmur Lungs: Normal Breath Sounds, No Wheeze, Rales, Rhonchi Neuro: Alert and responsive, No focal deficits noted Abdomen: Soft, Non-Tender Skin: No rashes noted on visualized skin Musculoskeletal: No Chest Wall Tenderness Extremities: No Clubbing, No Cyanosis, No Edema, Normal Pulses Results 10/01/18 05:25 10/02/18 10:39 Lab Results 10/02/18 10:39 Sodium 126 L Potassium 4.3 Chloride 92 L Carbon Dioxide 28 BUN 33 H Creatinine 1.30 H Glucose 255 H Calcium 8.8 BMP 10/02/18 Range/Units 10:39 Sodium 126 L (136-145) mEq/L Potassium 4.3 (3.5-5.1) mEq/L Chloride 92 L (98-107) mEq/L Carbon Dioxide 28 (23-29) mEq/L BUN 33 H (8-23) mg/dL Creatinine 1.30 H (0.60-1.20) mg/dL Glucose 255 H (70-105) mg/dL Calcium 8.8 (8.6-10.3) mg/dL Impressions Echocardiogram Limited Views 10/01/18 09:18 Impressions: LVEF 60-65%. Normal LV chamber size and function. Mild concentric left ventricular hypertrophy. Limited study, valves not assessed. Left Ventricular Wall Motion: Rest Echo Findings All wall segments showed normal motion. Findings: Study Quality * Technically adequate exam. ECG Findings * Normal sinus rhythm. Left Ventricle * LVEF 60-65%. * Normal LV chamber size and function. * Mild concentric left ventricular hypertrophy. Right Ventricle * Normal right ventricular structure and function. Pericardium * There is a trivial pericardial effusion present. IVC * Normal IVC dimensions and inspiratory collapse. Active Medications Albuterol Sulfate (Proventil Neb) 2.5 mg IH Q2H PRN PRN Reason: Shortness Of Breath/Wheezing Stop: 04/01/19 20:49 Albuterol/Ipratropium (Duoneb) 3 ml IH QIDR [facility] Stop: 04/01/19 23:01 Last Admin: 10/02/18 10:18 Dose: 3 ml Documented by: Aspirin (Aspirin Ec) 81 mg PO DAILY [facility] Stop: 04/02/19 09:01 Last Admin: 10/02/18 09:18 Dose: 81 mg Documented by: Atorvastatin Calcium (Lipitor) 40 mg PO [facility] Stop: 04/02/19 21:01 Last Admin: 10/01/18 21:26 Dose: 40 mg Documented by: Clonazepam (Klonopin) 1 mg PO HS [facility] Stop: 04/02/19 00:31 Last Admin: 10/01/18 21:26 Dose: 1 mg Documented by: Clopidogrel Bisulfate (Plavix) 75 mg PO DAILY [facility] Stop: 04/02/19 09:01 Last Admin: 10/02/18 09:18 Dose: 75 mg Documented by: Dextrose/Water (Dextrose 50% (Syg)) 25 ml IVP AD PRN PRN Reason: Hypoglycemia Stop: 04/01/19 20:50 Glucagon (Glucagen) 1 mg IM ONCE PRN PRN Reason: Hypoglycemia Stop: 04/01/19 20:50 Glucose (Gluctose) 15 gm PO ONCE PRN PRN Reason: Hypoglycemia Stop: 04/01/19 20:50 Glucose (Gluctose) 30 gm PO ONCE PRN PRN Reason: Hypoglycemia Stop: 04/01/19 20:50 Heparin Sodium (Porcine) (Heparin) 5,000 unit SQ Q12HCO [facility]; Protocol Stop: 04/02/19 06:01 Last Admin: 10/02/18 05:17 Dose: 5,000 unit Documented by: Azithromycin 500 mg/ Dextrose 250 mls @ 252 mls/hr IVPB Q24H [facility] Stop: 04/02/19 09:01 Last Admin: 10/02/18 09:18 Dose: 252 mls/hr Documented by: Dextrose (Dextrose 5%) 1,000 mls @ 100 mls/hr IVC .Q10H PRN PRN Reason: HYPOGLYCEMIA Stop: 04/01/19 20:50 Insulin Human Lispro (Humalog) 0 units SQ TIDAC [facility]; Protocol Stop: 04/03/19 07:31 Last Admin: 10/02/18 12:30 Dose: 2 units Documented by: Isosorbide Mononitrate (Imdur) 60 mg PO DAILY [facility] Stop: 04/02/19 11:31 Last Admin: 10/02/18 09:18 Dose: 60 mg Documented by: Latanoprost (Xalatan) 1 drop BOTH EYES HS [facility] Stop: 04/02/19 21:01 Last Admin: 10/02/18 03:01 Dose: Not Given Documented by: Metoprolol Tartrate (Lopressor) 100 mg PO BID [facility] Stop: 04/02/19 09:01 Last Admin: 10/02/18 09:18 Dose: 100 mg Documented by: Naloxone HCl (Narcan) 0.4 mg IVP Q2MPRN PRN PRN Reason: SEE COMMENTS Stop: 04/01/19 20:45 Nitroglycerin (Nitroglycerin) 0.4 mg SL Q5MPRN PRN PRN Reason: Chest Pain Stop: 04/01/19 20:51 Omeprazole (Prilosec) 40 mg PO DAILY [facility] Stop: 04/02/19 09:01 Last Admin: 10/02/18 09:18 Dose: 40 mg Documented by: Prednisone (Prednisone) 40 mg PO DAILY [facility] Stop: 04/02/19 09:01 Last Admin: 10/02/18 09:18 Dose: 40 mg Documented by: - Imaging and Cardiology Echo: report reviewed Consult Discharge Plan - Plan Referrals: Agustina Lai MD [Primary Care Provider] - 10/08/18 12:00 pm ()
--- NOTE | 2018-10-02 14:22 | Discharge Summary ---
- NOTES TO OUTPATIENT PROVIDER Notes to Outpatient Provider: f/u with PCP in one week. Please stop taking BP medication Hydrochlorathiazide ( water pill ) causing your hyponatremia. Please go on water restriction - don't drink plain water more than 1.5 lit / day. Also we increased your Imdur to 60mg for your chest pain. Date of Encounter: 10/02/18 Time of Encounter: 14:17 - Discharge Diagnosis (1) Chest pain Priority: Primary Status: Acute Qualifiers: Chest pain type: unspecified Qualified Code(s): R07.9 - Chest pain, unspecified (2) COPD exacerbation Priority: Primary Status: Acute (3) Chronic hyponatremia Priority: Secondary Status: Acute (4) MARCELA (acute kidney injury) Priority: Secondary Status: Acute (5) Shortness of breath Priority: Secondary Status: Acute (6) Diabetes Priority: Secondary Status: Acute Qualifiers: Diabetes mellitus type: type 2 Diabetes mellitus supervisor intermediates insulin use: without halfway use Diabetes mellitus complication status: with hyperglycemia Qualified Code(s): E11.65 - Type 2 diabetes mellitus with hyperglycemia (7) DVT prophylaxis Priority: Secondary Status: Acute Hospital course: Ms. Campbell is a 78 year old female with known past medical history of hypertension, COPD, DM2, HTN, HLD, and CAD with recent PCI to [facility] on 07/30/18, now she presented to ER with progressively worsening shortness of breath and intermittent left chest wall pain, as well as interscapular back pain radiating to her neck, similar to prior anginal equivalent. She was admitted in the hospital and placed her on equipment monitor phototypesetting. She was started on systemic steroids and prophylactic antibiotic for her COPD exacerbation. Her serial troponin came back as negative. Patient was evaluated by warrant clerk regarding her chest pain, who increased her Imdur to 60 mg. Since then pt has been doing well and denied any more CP. She does have chronic hyponatremia her baseline Na @ 130's. She also mentioned she drinks 4 lit of plain water every day and she is on HCTZ too. So I stopped her HCTZ and recommended to fluid restriction @ 1.5 lit / day. Patient stated she is feeling much better today and she would like to go home. Regarding her hyponatremia she would like to f/u with PCP as an out pt. - Time Spent with Patient Total time spent providing and/or coordinating discharge services: - Discharge Medications Prescriptions: New Azithromycin 250 mg PO DAILY #4 tablet Isosorbide MONOnitrate (24 HR) [Imdur] 60 mg PO DAILY #30 tab.er.24h predniSONE [PredniSONE] 40 mg PO DAILY #6 tablet Sodium Chloride 1,000 mg MC BID #10 tablet.[place] Continued Nitroglycerin [Nitrostat] 0.4 mg SL PRN PRN PRN Reason: Chest Pain Tiotropium [Spiriva] 18 mcg IH DAILY PRN PRN Reason: Shortness Of Breath Latanoprost/Pf [Latanoprost 0.005% Eye Drop] 1 drop BOTH EYES HS Albuterol Sulfate [Proventil Inhaler] 1 puff IH PRN PRN PRN Reason: Dyspnea metFORMIN [Glucophage] 500 mg PO HS Aspirin [Lo-Dose Aspirin EC] 81 mg PO DAILY Omeprazole [PriLOSEC] 40 mg PO DAILY Glimepiride [Amaryl] 4 mg PO BID Losartan Potassium [Cozaar] 100 mg PO DAILY amLODIPine [Norvasc] 5 mg PO DAILY Multivit-Min/Iron Fum/Folic AC [Ttjvg-Xvylokv-Ifqwklog Tablet] 1 each PO DAILY Atorvastatin [Lipitor] 40 mg PO HS #30 tablet Clopidogrel Bisulfate [Plavix] 75 mg PO DAILY #30 tablet metFORMIN [Glucophage] 1,000 mg PO 0800 clonazePAM [Clonazepam] 0.5 mg PO HS Metoprolol Tartrate 50 mg PO BID Nicotine Patch [Nicoderm] 7 mg TD DAILY PRN PRN Reason: Nicotine Cravings Discontinued hydroCHLOROthiazide [Hydrochlorothiazide] 25 mg PO DAILY Isosorbide MONOnitrate [Isosorbide Mononitrate ER] 30 mg PO DAILY Home Medications: Albuterol Sulfate [Proventil Inhaler] 1 puff IH PRN PRN 07/30/18 [History] Aspirin [Lo-Dose Aspirin EC] 81 mg PO DAILY 07/30/18 [History] Atorvastatin [Lipitor] 40 mg PO HS #30 tablet 07/30/18 [Rx] Clopidogrel Bisulfate [Plavix] 75 mg PO DAILY #30 tablet 07/30/18 [Rx] Glimepiride [Amaryl] 4 mg PO BID 07/30/18 [History] Latanoprost/Pf [Latanoprost 0.005% Eye Drop] 1 drop BOTH EYES HS 06/05/19 [History] Losartan Potassium [Cozaar] 100 mg PO DAILY 07/30/18 [History] Multivit-Min/Iron Fum/Folic AC [Vmeqn-Yxmmhlz-Flljdkwt Tablet] 1 each PO DAILY 07/30/18 [History] Nitroglycerin [Nitrostat] 0.4 mg SL PRN PRN 07/30/18 [History] Omeprazole [PriLOSEC] 40 mg PO DAILY 07/30/18 [History] Tiotropium [Spiriva] 18 mcg IH DAILY PRN 07/30/18 [History] amLODIPine [Norvasc] 5 mg PO DAILY 07/30/18 [History] metFORMIN [Glucophage] 500 mg PO HS 07/30/18 [History] metFORMIN [Glucophage] 1,000 mg PO 0800 09/30/18 [History] Metoprolol Tartrate 50 mg PO BID 10/01/18 [History] Nicotine Patch [Nicoderm] 7 mg TD DAILY PRN 10/01/18 [History] clonazePAM [Clonazepam] 0.5 mg PO HS 10/01/18 [History] Azithromycin 250 mg PO DAILY #4 tablet 10/02/18 [Rx] Isosorbide MONOnitrate (24 HR) [Imdur] 60 mg PO DAILY #30 tab.er.24h 10/02/18 [Rx] Sodium Chloride 1,000 mg MC BID #10 tablet.[place] 10/02/18 [Rx] predniSONE [PredniSONE] 40 mg PO DAILY #6 tablet 10/02/18 [Rx] Allergies/Adverse Reactions: Allergy/AdvReac Type Severity Reaction Status Date / Time No Known Allergies Allergy Verified 10/01/18 08:57 Date of admission: 09/30/18 20:05 Primary care physician: Agustina Lai MD Consults: 09/30/18 20:48 Consult to Nurse Navigator [CONS] Routine Comment: 09/30/18 21:10 Consult to Cardiology [CONS] Routine Comment: Consulting Provider: Cardiology [place] Reason for Consult: Chest pain, recent heart catheter Call Completed: No 10/01/18 00:05 Consult to Repair Service Clerk [CONS] Routine Reason for SW Consult: Pt is requesting more information and/or help with obtaining power of personal injury attorney, advanced directives, ect - Constitutional Vitals: Temp Pulse Resp BP Pulse Ox 97.9 F 62 16 141/72 96 10/02/18 12:27 10/02/18 12:27 10/02/18 12:27 10/02/18 12:27 10/02/18 12:27 General appearance: Present: cooperative, A&O X 3, pleasant, no acute distress, answers questions appropriately Exam: Gen: Alert, awake, Oriented to time,place and person Chest: Diminished breath sounds B/L, mild wheezing, No crackles, No rales Heart: S1S2+ RRR No murmurs Abd: Soft, NT, BS +, No organomegaly Ext: trace edema, pulses are palpable, No calf tenderness Neuro : No acute focal neuro deficits noticed Skin: No rash. - Patient Status Disposition: Home, Self-Care Condition: Good Overall status at discharge: patient is back to baseline - Ambulatory Orders Ambulatory Orders: Basic Metabolic Panel [CHEM] Time Frame: 3 Days, Facility: [facility], Location: Lab - Discharge Instructions Follow Up With: Agustina Lai MD [Primary Care Provider] - 10/08/18 12:00 pm () - Diet and Activity Activity: increase activity as tolerated Diet: advance to your usual diet
== END 2018-10-02 15:12 | disposition home or self-care (01) ==
LOC: EMEROOARM 16:28 → 3BNU 16:28 → SUATTDRO 20:05 → 3BNU 20:30
PROVIDERS: ADMIT Internal Medicine; ATTEND Family Medicine

== ENCOUNTER 2018-10-05 09:51 | Inpatient (IN) ==
[2018-10-05] MEDS ORDERED: *HR* Norepinephrine 4 MG/4 ML VIAL IVC ONE (12:38)
[2018-10-05] MEDS ORDERED: EPINEPHrine 1 MG/ML VIAL IV ONE (12:38)
[2018-10-05] MEDS ORDERED: D5% in Water 250 ML IV BAG IV ONE (12:38)
[2018-10-05] MEDS ORDERED: Naloxone 0.4 MG/ML INJ IVP PRN (13:20)
[2018-10-05] MEDS ORDERED: Perflutren Lipid Microsphere 1.3 ML in 0.9 % Sodium Chloride 8.7 ML IVP ONE (13:49)
[2018-10-05] MEDS ORDERED: *HR* Heparin 5,000 UNIT/ML VIAL IVP ONE (13:55)
[2018-10-05] MEDS ORDERED: *HR* Heparin 5,000 UNIT/ML VIAL IVP PRN ×2 (13:55)
[2018-10-05] MEDS ORDERED: Nicotine 7 MG PATCH.TD24 TD PRN (13:55)
[2018-10-05] MEDS ORDERED: Tiotropium 18 MCG inhalation IH PRN (13:57)
[2018-10-05] MEDS ORDERED: Heparin 25,000 UNIT/250 ML D5W 25,000 UNIT/250 ML IV.SOLN IVC SCH (14:00)
[2018-10-05] MEDS ORDERED: Nitroglycerin 25 MG/250 ML INFUS..BTL IVC SCH (14:00)
[2018-10-05] MEDS ORDERED: D5% in Water 1,000 ML IVC PRN (14:10)
[2018-10-05] MEDS ORDERED: Dextrose Gel 15 GM/37.5 ML TUBE PO PRN ×2 (14:10)
[2018-10-05] MEDS ORDERED: *HR* Dextrose 50 % in Water (Syg) 50 ML SYRINGE IVP PRN (14:10)
[2018-10-05 14:30] LABS: Basophils % 0.2 %; Eosinophils # 0.1 K/mcL (0.0-0.6); Eosinophils % 0.6 %; Hematocrit 37.6 % (35.3-44.9); Hemoglobin 12.4 g/dL (11.5-15.4); Immature Granulocytes % 0.5 % (0-4); Lymphocytes # 4.1 K/mcL (0.6-4.6); Lymphocytes % 34.8 %; Mean Corpuscular Hemoglobin 26.6 pg (28.0-33.3); Mean Corpuscular Volume 80.7 fL (83.0-100.0); Mean Platelet Volume 10.1 fL (9.4-12.4); Neutrophils # 6.6 K/mcL (1.6-8.9); Platelet Count 333 K/mcL (140-400); Red Blood Count 4.66 M/mcL (3.82-4.97); Red Cell Distribution Width 14.6 % (11.5-14.5); Segmented Neutrophils % 55.9 %; White Blood Count 11.9 K/mcL (4.3-11.1)
[2018-10-05] MEDS ORDERED: Heparin 1,000 UNITS/500 mL 500 ML ONE (15:00)
[2018-10-05] MEDS ORDERED: 0.9 % Sodium Chloride 1,000 ML ONE (15:00)
[2018-10-05] MEDS ORDERED: ISOVUE-370 200 ML INFUS..BTL ONE (15:01)
[2018-10-05] MEDS ORDERED: *HR* Heparin 10,000 UNIT/10 ML VIAL ONE ×2 (15:01→16:35)
[2018-10-05] MEDS ORDERED: Nitroglycerin 1,000 MCG/10 ML VIAL IV ONE (15:01)
[2018-10-05] MEDS ORDERED: *HR* Midazolam HCl 2 MG/2 ML VIAL ONE ×2 (15:34→15:48)
[2018-10-05] MEDS ORDERED: *HR* FentaNYL (PF) 100 MCG/2 ML VIAL ONE (15:35)
[2018-10-05 15:56] LABS: Potassium,Urine 9.9 mEq/L
[2018-10-05] MEDS: Insulin LISPRO 300 UNITS/3 ML VIAL SQ SCH ×2 (16:28→20:38)
[2018-10-05] MEDS ORDERED: 0.9 % Sodium Chloride 1,000 ML IVC SCH ×2 (16:45→19:01)
[2018-10-05] MEDS ORDERED: *HR* Atropine Sulfate 1 MG/10 ML SYRINGE ONE (18:07)
[2018-10-05 18:20] LABS: Heparin anti-factor XA UFH 0.68 IU/mL (0.30-0.70)
[2018-10-05 18:21] LABS: Prothrombin Time 11.6 Seconds (9.4-12.1)
[2018-10-05 18:34] LABS: Alanine Aminotransferase 19 Units/L (7-52); Albumin 3.8 g/dL (3.5-5.7); Albumin/Globulin Ratio 1.6 (1.1-2.2); Alkaline Phosphatase 48 Units/L (34-104); Aspartate Amino Transferase 18 Units/L (13-39); BUN/Creatinine Ratio 27 (6-26); Bilirubin,Total 1.9 mg/dL (0.3-1.0); Blood Urea Nitrogen 22 mg/dL (8-23); Calcium 8.8 mg/dL (8.6-10.3); Carbon Dioxide 22 mEq/L (23-29); Chloride 101 mEq/L (98-107); Globulin 2.4 g/dL (2.4-3.5); Glucose 164 mg/dL (70-105); Magnesium 1.6 mg/dL (1.6-2.6); Osmolality,Calculated 281 (280-300); Phosphorous 2.7 mg/dL (2.7-4.5); Sodium 132 mEq/L (136-145); Total Protein 6.2 g/dL (6.4-8.9); eGFR For African Americans > 60 (> 60); eGFR For Non-African Americans > 60 (> 60)
[2018-10-05] MEDS: clonazePAM 0.5 MG TABLET PO SCH (21:29)
[2018-10-05] MEDS: Latanoprost 2.5 ML BOTTLE BOTH EYES SCH (21:30)
[2018-10-06 02:36] LABS: Hematocrit 35.1 % (35.3-44.9); Hemoglobin 11.5 g/dL (11.5-15.4); Mean Corpuscular HGB Conc 32.8 g/dL (31.6-35.5); Mean Corpuscular Hemoglobin 26.8 pg (28.0-33.3); Mean Corpuscular Volume 81.8 fL (83.0-100.0); Mean Platelet Volume 10.2 fL (9.4-12.4); Platelet Count 261 K/mcL (140-400); Red Blood Count 4.29 M/mcL (3.82-4.97); Red Cell Distribution Width 14.9 % (11.5-14.5); White Blood Count 7.7 K/mcL (4.3-11.1)
[2018-10-06 02:49] LABS: BUN/Creatinine Ratio 25 (6-26); Blood Urea Nitrogen 26 mg/dL (8-23); Calcium 8.5 mg/dL (8.6-10.3); Carbon Dioxide 22 mEq/L (23-29); Chloride 106 mEq/L (98-107); Chol/HDL Ratio 3.1 (0-4.9); Cholesterol 113 mg/dL (< 200); Glucose 167 mg/dL (70-105); HDL Cholesterol 36 mg/dL (40-59); LDL Cholesterol,Calculated 39 mg/dL (0-99); Osmolality,Calculated 289 (280-300); Potassium 4.6 mEq/L (3.5-5.1); Sodium 135 mEq/L (136-145); Triglycerides 192 mg/dL (< 150); eGFR For African Americans > 60 (> 60); eGFR For Non-African Americans 52 (> 60)
[2018-10-06 03:05] LABS: Thyroid Stimulating Hormone 1.592 mcIU/mL (0.340-5.600)
[2018-10-06] MEDS ORDERED: Nitroglycerin 0.4 MG TAB.SUBL SL PRN (07:30)
[2018-10-06 08:46] LABS: Estimated Average Glucose 194 mg/dl
[2018-10-06] MEDS: Aspirin Enteric Coated 81 MG Tablet PO SCH (08:52)
[2018-10-06] MEDS: Isosorbide MONOnitrate (24 HR) 60 MG TAB.ER.24H PO SCH (08:52)
[2018-10-06] MEDS: Multivit/Ca/Min/Fe/FA 1 TAB TABLET PO SCH (08:52)
[2018-10-06] MEDS: amLODIPine 5 MG TABLET PO SCH (08:52)
[2018-10-06] MEDS: predniSONE 20 MG TABLET PO SCH (08:52)
[2018-10-06] MEDS: Insulin LISPRO 300 UNITS/3 ML VIAL SQ SCH ×4 (08:54→20:52)
[2018-10-06] MEDS: *HR* Heparin 5,000 UNIT/ML VIAL SQ SCH ×2 (14:51→20:52)
[2018-10-06] MEDS ORDERED: Ipratropium/Albuterol Neb 3 ML IH PRN (17:14)
[2018-10-06] MEDS: Latanoprost 2.5 ML BOTTLE BOTH EYES SCH (20:52)
[2018-10-06] MEDS: clonazePAM 0.5 MG TABLET PO SCH (20:52)
[2018-10-07] MEDS: *HR* Heparin 5,000 UNIT/ML VIAL SQ SCH (06:19)
[2018-10-07 06:52] LABS: BUN/Creatinine Ratio 31 (6-26); Blood Urea Nitrogen 30 mg/dL (8-23); Calcium 8.1 mg/dL (8.6-10.3); Carbon Dioxide 20 mEq/L (23-29); Chloride 103 mEq/L (98-107); Glucose 152 mg/dL (70-105); Osmolality,Calculated 285 (280-300); Potassium 4.2 mEq/L (3.5-5.1); Sodium 133 mEq/L (136-145); eGFR For African Americans > 60 (> 60); eGFR For Non-African Americans 55 (> 60)
[2018-10-07] MEDS: predniSONE 20 MG TABLET PO SCH (08:00)
[2018-10-07] MEDS: Isosorbide MONOnitrate (24 HR) 60 MG TAB.ER.24H PO SCH (08:00)
[2018-10-07] MEDS: amLODIPine 5 MG TABLET PO SCH (08:00)
[2018-10-07] MEDS: Multivit/Ca/Min/Fe/FA 1 TAB TABLET PO SCH (08:00)
[2018-10-07] MEDS: Aspirin Enteric Coated 81 MG Tablet PO SCH (08:00)
[2018-10-07] MEDS: Insulin LISPRO 300 UNITS/3 ML VIAL SQ SCH (08:01)
[2018-10-07 11:42] VITALS: BP 138/56
== END 2018-10-07 13:57 | disposition home or self-care (01) | DRG 246 ==
LOC: SUATTDRO 13:00 → 2NNU 13:00
PROVIDERS: ADMIT Internal Medicine; ATTEND Internal Medicine

== ENCOUNTER 2018-10-10 20:50 | Observation (INO) ==
[2018-10-10] MEDS ORDERED: Tiotropium 18 MCG inhalation IH PRN (23:48)
[2018-10-11] MEDS ORDERED: Ipratropium/Albuterol Neb 3 ML IH PRN (00:32)
[2018-10-11] MEDS ORDERED: D5% in Water 1,000 ML IVC PRN (01:21)
[2018-10-11] MEDS ORDERED: *HR* Dextrose 50 % in Water (Syg) 50 ML SYRINGE IVP PRN (01:21)
[2018-10-11] MEDS ORDERED: Dextrose Gel 15 GM/37.5 ML TUBE PO PRN ×2 (01:21)
[2018-10-11] MEDS: Insulin LISPRO 300 UNITS/3 ML VIAL SQ SCH ×4 (02:16→16:47)
[2018-10-11 06:21] LABS: INR 1.1; Prothrombin Time 12.1 Seconds (9.4-12.1)
[2018-10-11 06:40] LABS: Estimated Average Glucose 194 mg/dl
[2018-10-11 06:54] LABS: Alanine Aminotransferase 15 Units/L (7-52); Albumin 3.5 g/dL (3.5-5.7); Albumin/Globulin Ratio 1.7 (1.1-2.2); Alkaline Phosphatase 44 Units/L (34-104); Aspartate Amino Transferase 11 Units/L (13-39); BUN/Creatinine Ratio 17 (6-26); Bilirubin,Total 0.8 mg/dL (0.3-1.0); Blood Urea Nitrogen 14 mg/dL (8-23); Carbon Dioxide 26 mEq/L (23-29); Chloride 102 mEq/L (98-107); Chol/HDL Ratio 2.8 (0-4.9); Cholesterol 113 mg/dL (< 200); Globulin 2.1 g/dL (2.4-3.5); Glucose 97 mg/dL (70-105); HDL Cholesterol 40 mg/dL (40-59); LDL Cholesterol,Calculated 44 mg/dL (0-99); Osmolality,Calculated 286 (280-300); Potassium 3.9 mEq/L (3.5-5.1); Sodium 138 mEq/L (136-145); Total Protein 5.6 g/dL (6.4-8.9); Triglycerides 146 mg/dL (< 150); Troponin I 0.09 ng/mL (< 0.04); eGFR For African Americans > 60 (> 60); eGFR For Non-African Americans > 60 (> 60)
[2018-10-11] MEDS: Aspirin Enteric Coated 81 MG Tablet PO SCH (09:00)
[2018-10-11 18:11] LABS: Bilirubin,Urine Negative (Negative); Blood,Urine Negative (Negative); Clarity,Urine Clear (Clear); Color,Urine Yellow (Yellow); Glucose,Urine (UA) Normal (Normal); Ketones,Urine Negative (Negative); Leukocyte Esterase,Urine Small (Negative); Nitrite,Urine Negative (Negative); Protein,Urine Negative (Neg-Trace); Specific Gravity,Urine 1.011 (1.010-1.025); Urobilinogen,Urine Normal (Normal)
[2018-10-11 18:13] LABS: Bacteria,Urine Few per hpf (None-Few); Hyaline Casts,Urine None Seen per lpf (None-Few); RBC,Urine 0-3 per hpf (0-3); Squamous Epithelial Cell,Urine Moderate per lpf (None-Few)
[2018-10-11] MEDS ORDERED: clonazePAM 0.5 MG TABLET PO SCH (21:00)
[2018-10-11] MEDS ORDERED: Latanoprost 2.5 ML BOTTLE BOTH EYES SCH (21:00)
[2018-10-12 01:25] LABS: Hemoglobin 11.5 g/dL (11.5-15.4); Mean Corpuscular HGB Conc 31.9 g/dL (31.6-35.5); Mean Corpuscular Hemoglobin 26.6 pg (28.0-33.3); Mean Corpuscular Volume 83.1 fL (83.0-100.0); Mean Platelet Volume 10.1 fL (9.4-12.4); Platelet Count 259 K/mcL (140-400); Red Blood Count 4.33 M/mcL (3.82-4.97); Red Cell Distribution Width 15.1 % (11.5-14.5); White Blood Count 8.3 K/mcL (4.3-11.1)
[2018-10-12 01:41] LABS: BUN/Creatinine Ratio 16 (6-26); Blood Urea Nitrogen 15 mg/dL (8-23); Calcium 9.8 mg/dL (8.6-10.3); Carbon Dioxide 27 mEq/L (23-29); Chloride 102 mEq/L (98-107); Glucose 161 mg/dL (70-105); Osmolality,Calculated 288 (280-300); Potassium 4.6 mEq/L (3.5-5.1); Sodium 137 mEq/L (136-145); eGFR For African Americans > 60 (> 60); eGFR For Non-African Americans 56 (> 60)
[2018-10-12 06:38] VITALS: BP 154/79
[2018-10-12] MEDS: Aspirin Enteric Coated 81 MG Tablet PO SCH (08:24)
[2018-10-12] MEDS: Insulin LISPRO 300 UNITS/3 ML VIAL SQ SCH (08:24)
[2018-10-12] MEDS ORDERED: Multivit/Ca/Min/Fe/FA 1 TAB TABLET PO SCH (09:00)
[2018-10-12] MEDS ORDERED: amLODIPine 5 MG TABLET PO SCH (09:00)
== END 2018-10-12 11:54 | disposition home or self-care (01) ==
LOC: 3BNU → SUATTDRO 22:58
PROVIDERS: ADMIT Internal Medicine Nephrology; ATTEND Internal Medicine

== ENCOUNTER 2020-03-24 10:05 | Inpatient (IN) ==
[2020-03-24] MEDS ORDERED: CeFAZolin Syr 2,000MG/20 ML 2,000 MG/20 ML SYRINGE IVPB ONE (10:39)
[2020-03-24] MEDS ORDERED: Ringers Solution, Lactated 1,000 ML IVC SCH (10:45)
[2020-03-24] MEDS ORDERED: Famotidine 20 MG/2 ML VIAL IVP ONE (11:00)
[2020-03-24] MEDS ORDERED: Acetaminophen IV 1,000 MG/100 ML BAG IVPB ONE (11:01)
[2020-03-24] MEDS ORDERED: Lidocaine -MPF 2% 2 ML VIAL ONE (11:12)
[2020-03-24] MEDS ORDERED: Ondansetron 4 MG/2 ML VIAL ONE (11:12)
[2020-03-24] MEDS ORDERED: Dexamethasone 4 MG/ML VIAL ONE (11:12)
[2020-03-24] MEDS ORDERED: *HR* Propofol 200 MG/20 ML VIAL IVP ONE (11:12)
[2020-03-24] MEDS ORDERED: *HR* FentaNYL (PF) 100 MCG/2 ML VIAL ONE (11:12)
[2020-03-24] MEDS ORDERED: Ketorolac 30 MG/ML VIAL ONE (11:14)
[2020-03-24] MEDS ORDERED: Lidocaine HCL 4 ML Topical Solution (Laryng-O-Jet Kit Sterile Pak) TP ONE (11:14)
[2020-03-24] MEDS ORDERED: *HR* Rocuronium Bromide 50 MG/5 ML VIAL ONE (11:24)
[2020-03-24 11:40] LABS: Adenovirus Not Detected (Not Detect); Bordetella Pertussis Not Detected (Not Detect); Chlamydophila pneumoniae Not Detected (Not Detect); Coronavirus 229E Not Detected (Not Detect); Coronavirus HKU1 Not Detected (Not Detect); Coronavirus NL63 Not Detected (Not Detect); Coronavirus OC43 Not Detected (Not Detect); Human Metapneumovirus Not Detected (Not Detect); Human Rhinovirus/Enterovirus Not Detected (Not Detect); Influenza A Subtype 2009 H1 Not Detected (Not Detect); Influenza B Not Detected (Not Detect); Mycoplasma pneumoniae Not Detected (Not Detect); Parainfluenza Virus 1 Not Detected (Not Detect); Parainfluenza Virus 2 Not Detected (Not Detect); Parainfluenza Virus 3 Not Detected (Not Detect); Parainfluenza Virus 4 Not Detected (Not Detect); Respiratory Syncytial Virus Not Detected (Not Detect); SARS-CoV-2 Not Detected (Not Detect)
[2020-03-24] MEDS ORDERED: Lidocaine 5% OINT 35 APPL/35.44 GM TUBE TP ONE (11:40)
[2020-03-24] MEDS ORDERED: Ondansetron 4 MG/2 ML VIAL IVP PRN ×2 (11:54→16:16)
[2020-03-24] MEDS ORDERED: *HR* OxyCODONE Immed Rel 5 MG TABLET PO PRN (11:54)
[2020-03-24] MEDS ORDERED: *HR* PHENYLEPHRINE 1,000 MCG/10 ML SYRINGE IVP ONE (12:38)
[2020-03-24] MEDS ORDERED: *HR* Labetalol 20 MG/4 ML SYRINGE IVP ONE (14:37)
[2020-03-24] MEDS ORDERED: *HR* Labetalol 20 MG/4 ML SYRINGE IVP PRN (14:39)
[2020-03-24] MEDS ORDERED: 0.9 % Sodium Chloride 1,000 ML IVC SCH (16:16)
[2020-03-24] MEDS ORDERED: D5% in Water 1,000 ML IVC PRN (16:16)
[2020-03-24] MEDS ORDERED: *HR* Dextrose 50 % in Water (Vial) 50 ML VIAL IVP PRN (16:16)
[2020-03-24] MEDS ORDERED: Naloxone 0.4 MG/ML INJ IVP PRN (16:16)
[2020-03-24] MEDS ORDERED: Dextrose Gel 15 GM/37.5 ML TUBE PO PRN ×2 (16:16)
[2020-03-24] MEDS ORDERED: Ipratropium/Albuterol Neb 3 ML ONE (16:26)
[2020-03-24] MEDS: Ipratropium/Albuterol Neb 3 ML IH SCH ×3 (16:34→23:50)
[2020-03-24] MEDS: *HR* Heparin 5,000 UNIT/ML VIAL SQ SCH ×2 (18:59→21:27)
[2020-03-24] MEDS: *HR* Glimepiride 4 MG TABLET PO SCH (19:00)
[2020-03-24] MEDS: Gabapentin 300 MG CAPSULE PO SCH ×2 (19:00→21:28)
[2020-03-24] MEDS: Insulin LISPRO 300 UNITS/3 ML VIAL SUBQ SCH ×2 (19:01→21:27)
[2020-03-24] MEDS: Famotidine 20 MG TABLET PO SCH (21:26)
[2020-03-24] MEDS: *HR* HYDROcodone/Acet 5/325 mg TABLET PO PRN (21:26)
[2020-03-24] MEDS: Sennosides/Docusate Sodium TABLET PO SCH (21:26)
[2020-03-24] MEDS: clonazePAM 0.5 MG TABLET PO SCH (21:26)
[2020-03-24] MEDS: Latanoprost 2.5 ML BOTTLE BOTH EYES SCH (23:01)
[2020-03-25] MEDS: Ipratropium/Albuterol Neb 3 ML IH SCH ×5 (03:51→19:57)
[2020-03-25 04:46] LABS: Hematocrit 34.8 % (35.3-44.9); Hemoglobin 11.4 g/dL (11.5-15.4); Mean Corpuscular HGB Conc 32.8 g/dL (31.6-35.5); Mean Corpuscular Volume 85.5 fL (83.0-100.0); Mean Platelet Volume 10.6 fL (9.4-12.4); Platelet Count 215 K/mcL (140-400); Red Blood Count 4.07 M/mcL (3.82-4.97); Red Cell Distribution Width 13.4 % (11.5-14.5); White Blood Count 8.2 K/mcL (4.3-11.1)
[2020-03-25 04:55] LABS: % Iron Saturation 9 % (15-50); BUN/Creatinine Ratio 23 (6-26); Blood Urea Nitrogen 23 mg/dL (8-23); Calcium 8.3 mg/dL (8.6-10.3); Carbon Dioxide 22 mEq/L (23-29); Chloride 103 mEq/L (98-107); Glucose 285 mg/dL (70-105); Iron 28 mcg/dL (50-170); Magnesium 1.7 mg/dL (1.6-2.6); Osmolality,Calculated 290 (280-300); Potassium 4.8 mEq/L (3.5-5.1); Sodium 133 mEq/L (136-145); Transferrin 233 mg/dL (203-362); eGFR For African Americans > 60 (> 60); eGFR For Non-African Americans 53 (> 60)
[2020-03-25] MEDS: *HR* Heparin 5,000 UNIT/ML VIAL SQ SCH ×3 (05:44→20:48)
[2020-03-25] MEDS ORDERED: Iron Sucrose Complex 400 MG in 0.9 % Sodium Chloride 250 ML IVPB ONE (09:13)
[2020-03-25] MEDS ORDERED: Thiamine (B-1) 100 MG in 0.9 % Sodium Chloride 50 ML IVPB ONE (09:26)
[2020-03-25] MEDS ORDERED: Folic Acid 1 MG in 0.9 % Sodium Chloride 50 ML IVPB ONE (09:26)
[2020-03-25] MEDS: Insulin LISPRO 300 UNITS/3 ML VIAL SUBQ SCH ×4 (09:53→20:48)
[2020-03-25] MEDS: *HR* Metformin 500 MG TABLET PO SCH (09:54)
[2020-03-25] MEDS: *HR* Glimepiride 4 MG TABLET PO SCH ×2 (09:55→16:58)
[2020-03-25] MEDS: Aspirin Enteric Coated 81 MG Tablet PO SCH (09:55)
[2020-03-25] MEDS: amLODIPine 5 MG TABLET PO SCH (09:56)
[2020-03-25] MEDS: Gabapentin 300 MG CAPSULE PO SCH ×3 (09:56→20:48)
[2020-03-25] MEDS: clonazePAM 0.5 MG TABLET PO SCH ×2 (09:56→20:48)
[2020-03-25] MEDS: Isosorbide MONOnitrate (24 HR) 60 MG TAB.ER.24H PO SCH (09:56)
[2020-03-25] MEDS: Famotidine 20 MG TABLET PO SCH ×2 (09:56→20:47)
[2020-03-25] MEDS: Sennosides/Docusate Sodium TABLET PO SCH ×2 (09:56→20:47)
[2020-03-25] MEDS: *HR* HYDROcodone/Acet 5/325 mg TABLET PO PRN (20:48)
[2020-03-25] MEDS: Latanoprost 2.5 ML BOTTLE BOTH EYES SCH (21:12)
[2020-03-26] MEDS: Ipratropium/Albuterol Neb 3 ML IH SCH ×7 (00:27→23:10)
[2020-03-26] MEDS: *HR* HYDROcodone/Acet 5/325 mg TABLET PO PRN ×2 (00:43→22:43)
[2020-03-26] MEDS: *HR* Heparin 5,000 UNIT/ML VIAL SQ SCH ×3 (06:29→22:43)
[2020-03-26] MEDS: Aspirin Enteric Coated 81 MG Tablet PO SCH (07:49)
[2020-03-26] MEDS: Sennosides/Docusate Sodium TABLET PO SCH ×2 (07:49→20:01)
[2020-03-26] MEDS: Gabapentin 300 MG CAPSULE PO SCH ×3 (07:49→20:00)
[2020-03-26] MEDS: clonazePAM 0.5 MG TABLET PO SCH ×2 (07:50→20:00)
[2020-03-26] MEDS: *HR* Glimepiride 4 MG TABLET PO SCH ×2 (07:50→17:28)
[2020-03-26] MEDS: Famotidine 20 MG TABLET PO SCH ×2 (07:50→20:00)
[2020-03-26] MEDS: *HR* Metformin 500 MG TABLET PO SCH (07:50)
[2020-03-26] MEDS: Isosorbide MONOnitrate (24 HR) 60 MG TAB.ER.24H PO SCH (07:50)
[2020-03-26] MEDS: amLODIPine 5 MG TABLET PO SCH (07:51)
[2020-03-26] MEDS: Insulin LISPRO 300 UNITS/3 ML VIAL SUBQ SCH ×4 (07:52→20:04)
[2020-03-26] MEDS: Latanoprost 2.5 ML BOTTLE BOTH EYES SCH (22:46)
[2020-03-27] MEDS: Ipratropium/Albuterol Neb 3 ML IH SCH ×5 (04:30→20:46)
[2020-03-27] MEDS: *HR* Heparin 5,000 UNIT/ML VIAL SQ SCH ×3 (06:28→22:02)
[2020-03-27] MEDS: Sennosides/Docusate Sodium TABLET PO SCH ×2 (08:56→22:01)
[2020-03-27] MEDS: Aspirin Enteric Coated 81 MG Tablet PO SCH (08:56)
[2020-03-27] MEDS: Famotidine 20 MG TABLET PO SCH (08:57)
[2020-03-27] MEDS: *HR* Metformin 500 MG TABLET PO SCH (08:57)
[2020-03-27] MEDS: amLODIPine 5 MG TABLET PO SCH (08:57)
[2020-03-27] MEDS: Gabapentin 300 MG CAPSULE PO SCH ×3 (08:57→22:01)
[2020-03-27] MEDS: *HR* Glimepiride 4 MG TABLET PO SCH ×2 (08:57→17:30)
[2020-03-27] MEDS: clonazePAM 0.5 MG TABLET PO SCH ×2 (08:57→22:01)
[2020-03-27] MEDS: Insulin LISPRO 300 UNITS/3 ML VIAL SUBQ SCH ×4 (08:58→22:02)
[2020-03-27] MEDS: Isosorbide MONOnitrate (24 HR) 60 MG TAB.ER.24H PO SCH (09:04)
[2020-03-27] MEDS ORDERED: Amiodarone Premix 360 MG/200 ML BAG IVC ONE (10:08)
[2020-03-27] MEDS ORDERED: Amiodarone Premix 150 MG/100 ML BAG IVPB ONE (10:08)
[2020-03-27] MEDS: Amiodarone Premix 360 MG/200 ML BAG IVC SCH (17:32)
[2020-03-27] MEDS: Latanoprost 2.5 ML BOTTLE BOTH EYES SCH (22:03)
[2020-03-28] MEDS: Ipratropium/Albuterol Neb 3 ML IH SCH ×4 (00:08→11:22)
[2020-03-28] MEDS: Amiodarone Premix 360 MG/200 ML BAG IVC SCH (06:45)
[2020-03-28] MEDS: *HR* Heparin 5,000 UNIT/ML VIAL SQ SCH (06:46)
[2020-03-28] MEDS: *HR* Glimepiride 4 MG TABLET PO SCH (08:10)
[2020-03-28] MEDS: *HR* Metformin 500 MG TABLET PO SCH (08:10)
[2020-03-28] MEDS: Sennosides/Docusate Sodium TABLET PO SCH (08:10)
[2020-03-28] MEDS: Aspirin Enteric Coated 81 MG Tablet PO SCH (08:10)
[2020-03-28] MEDS: amLODIPine 5 MG TABLET PO SCH (08:11)
[2020-03-28] MEDS: clonazePAM 0.5 MG TABLET PO SCH (08:11)
[2020-03-28] MEDS: Isosorbide MONOnitrate (24 HR) 60 MG TAB.ER.24H PO SCH (08:11)
[2020-03-28] MEDS: Gabapentin 300 MG CAPSULE PO SCH (08:11)
[2020-03-28] MEDS: Insulin LISPRO 300 UNITS/3 ML VIAL SUBQ SCH ×2 (08:15→11:15)
[2020-03-28] MEDS ORDERED: Famotidine 20 MG TABLET PO SCH (09:00)
[2020-03-28 11:13] VITALS: BP 150/86
[2020-03-28] MEDS ORDERED: *HR* Amiodarone 200 MG TABLET PO SCH (12:30)
== END 2020-03-28 13:49 | disposition home or self-care (01) | DRG 167 ==
LOC: SAMDAY 10:05 → 2NNU 15:27
PROVIDERS: ADMIT Thoracic Surgery (Cardiothoracic Vascular Surgery); ATTEND Thoracic Surgery (Cardiothoracic Vascular Surgery)